=== PATIENT | female | born 1975 | race Two or more races ===

== ENCOUNTER → 2017-03-28 | Outpatient (CLI) | payer OTHER ==
--- NOTE | ~2017-03-28 | US98 ---
[facility] A Service of [facility] & [facility] RADIOLOGY TEXT RESULTS PATIENT: CHIP AMBROSE LOCATION: [facility] : 75 UNIT #: [id number] AGE: [address]: ASHLEY SEYMOUR SEX: F ORDER DR: [id number] [facility] [address] [place], [place] [address] [id number] O MR#: [id number] Acc #: [id number] NAME: CHIP AMBROSE : 1975 SEX: F STUDY DATE/TIME: 03/28/2017 15:01 UNIT: [facility] ROOM: STUDY DESCRIPTION: US Pelvic Non-OB Complete Attending Physician: Ashley Seymour Ordering Physician: Physician Non-Staff Primary Care Physician: Ashley Seymour MEDICAL IMAGING REPORT This report is preliminary unless electronic signature is present EXAM Transabdominal and transvaginal pelvic ultrasound 03/28/2017 HISTORY Left side pelvic pain and left lower quadrant abdominal pain for 3 months. No known injury. FINDINGS Transabdominal and transvaginal pelvic ultrasound was performed. Endovaginal ultrasound was performed for attempted better visualization of the adnexal structures. The bladder was poorly visualized as it was emptied during the examination. The uterus is surgically absent as per patient history. The left ovary measured 4.4 cm x 3.1 cm x 3.4 cm and contained multiple dominant follicles as well as a 3.6 cm x 2.3 cm simple cyst. The right ovary measured 2 cm x 1.4 cm x 2.3 cm and contained multiple small follicles. Color-flow Doppler images show normal blood flow to both ovaries. No adnexal mass. No free fluid in the pelvis. IMPRESSION 1. Surgical absence of the uterus. 2. 3.6 cm simple cyst left ovary. Dictated by... Simon Foss M.D. THIS IS AN ELECTRONICALLY VERIFIED REPORT Simon Foss M.D. at 03/29/2017 2:06 PM VAL/tracy TD: 03/28/2017 19:09 JOB #: [id number] MEDICAL IMAGING REPORT [facility] A Service of [facility] & [facility] RADIOLOGY TEXT RESULTS PATIENT: CHIP AMBROSE LOCATION: [facility] #: [id number] : 75 UNIT #: [id number] AGE: [address]: ASHLEY SEYMOUR SEX: F ORDER DR: Page 1 of 1 COPY
== END | disposition home or self-care (01) ==
LOC: CWCC 14:46
DX: R10.2 Pelvic and perineal pain (principal); N83.292 Other ovarian cyst, left side; Z90.710 Acquired absence of both cervix and uterus
CPT/HCPCS: 76830; 76856

== ENCOUNTER → 2017-04-10 | Outpatient (CLI) | payer OTHER ==
--- NOTE | ~2017-04-10 | MY29 ---
[facility] A Service [facility] RADIOLOGY TEXT RESULTS PATIENT: CHIP AMBROSE LOCATION: [facility] : 75 UNIT #: [id number] AGE: [address]: ASHLEY SEYMOUR SEX: F ORDER DR: [id number] [place], [place] [address] [id number] O MR#: [id number] Acc #: [id number] NAME: CHIP AMBROSE : 1975 SEX: F STUDY DATE/TIME: 04/10/2017 11:33 UNIT: [facility] ROOM: STUDY DESCRIPTION: MY [facility] SCREENING W/ CAD BILAT Attending Physician: Ashley Seymour Referring Physician: Ashley Seymour Ordering Physician: Staff Doctor Not On Primary Care Physician: Ashley Seymour MEDICAL IMAGING REPORT This report is preliminary unless electronic signature is present EXAM Digital screening mammogram, 04/10/2017. LOCATION [facility]. HISTORY 42-year-old woman, no risk elevation. Annual screen. COMPARISON 04/07/2016, follow up diagnostic left breast imaging 04/19/2016. TECHNIQUE Digital imaging of each breast was completed utilizing screening protocol. Review includes FDA-approved CAD device. FINDINGS The breast parenchyma is dense with a fibroglandular opacities present in each breast. Occasional scattered punctate microcalcification noted as well. I see no suspicious mass characteristics. There are no interval occurring suspicious microcalcifications and no architectural deformity. IMPRESSION Negative mammogram. Annual screening recommended. Patients over the age of 40 are entered into a reminder system with target due date for the next mammogram. A result letter will also be sent to the patient. BIRADS: 1 Negative. [facility] A Service [facility] RADIOLOGY TEXT RESULTS PATIENT: CHIP AMBROSE LOCATION: [facility] : 75 UNIT #: [id number] AGE: [address]: ASHLEY SEYMOUR SEX: F ORDER DR: Dictated by... Dennis Swain M.D. THIS IS AN ELECTRONICALLY VERIFIED REPORT Dennis Swain M.D. at 04/11/2017 8:02 AM DENISA/keenan TD: 04/10/2017 16:44 JOB #: [id number] MEDICAL IMAGING REPORT Page 1 of 1 COPY
== END | disposition home or self-care (01) ==
LOC: CWCC 11:07
DX: Z12.31 Encounter for screening mammogram for malignant neoplasm of breast (principal)
CPT/HCPCS: G0202